=== PATIENT | female | born 1975 | race American Indian/Alaskan Native ===

== ENCOUNTER 2017-07-17 19:43 | Emergency (ER) | payer SELFPAY ==
[2017-07-17 19:52] VITALS: BP 118/72
[2017-07-17 20:43] LABS: Bilirubin,Urine NEG (Negative); Blood,Urine NEG (Negative); Ketones,Urine NEG (Negative); Leukocyte Esterase,Urine NEG (Negative); Mucus,Urine FEW /HPF; Nitrite,Urine NEG (Negative); Protein,Urine <15 mg/dL mg/dL (Negative); Urobilinogen,Urine < 2.0 mg/dL (<2.0); WBC,Urine < 1.0 /HPF (0.0-6.0)
[2017-07-17 21:03] LABS: Alanine Aminotransferase 13 units/L (7-56); Albumin 3.7 g/dL (3.9-5); Alkaline Phosphatase 55 units/L (35-129); Anion Gap 15 mmol/L; BUN/Creatinine Ratio 22.85; Bilirubin,Total < 0.20 mg/dL (0.1-1.2); Blood Urea Nitrogen 16 mg/dL (7-17); Carbon Dioxide 23 mmol/L (22-30); Chloride 107.6 mmol/L (98-107); Glucose 98 mg/dL (65-100); Potassium 3.8 mmol/L (3.6-5.0); Sodium 142 mmol/L (137-145); Total Protein 7.3 g/dL (6.3-8.2)
[2017-07-17 21:08] LABS: Hemoglobin 11.9 gm/dl (10.1-14.3); White Blood Count 7.6 K/mm3 (4.5-11.0)
[2017-07-17 21:09] LABS: Basophils % (Auto) 1.1 % (0.0-1.8); Eosinophils % (Auto) 3.2 % (0.0-4.3); Hematocrit 37.8 % (30.3-42.9); Mean Corpuscular HGB Conc 32 % (30-34); Mean Corpuscular Hemoglobin 27 pg (28-32); Mean Corpuscular Volume 86 fl (79-97); Platelet Count 279 K/mm3 (140-440); Red Cell Distribution Width 16.2 % (13.2-15.2)
[2017-07-17 21:16] LABS: Lipase 36 units/L (13-60)
== END 2017-07-17 20:40 | disposition left against medical advice (07) ==
LOC: ED 19:43
DX: R10.9 Unspecified abdominal pain (principal); N89.8 Other specified noninflammatory disorders of vagina; Z53.21 Procedure and treatment not carried out due to patient leaving prior to being seen by health care provider
CPT/HCPCS: 36415; 80053; 81001; 83690; 84703; 85025

== ENCOUNTER 2018-03-02 14:13 | Emergency (ER) | payer SELFPAY ==
[2018-03-02 14:22] VITALS: BP 151/86
== END 2018-03-02 15:41 | disposition left against medical advice (07) ==
LOC: ED 14:13
DX: R20.0 Anesthesia of skin (principal); Z53.21 Procedure and treatment not carried out due to patient leaving prior to being seen by health care provider
CPT/HCPCS: 93005; 93010